=== PATIENT | male | born 1960 | race African-American/Black ===

== ENCOUNTER 2019-06-01 00:07 | Emergency (ER) | payer MEDICARE, MEDICAID ==
[~2019-06-01] VITALS: Ht 170.2 cm; Wt 54.4 kg
[2019-06-01] MEDS ORDERED: HYDROcodone-ACET 10/325MG TAB PO ONE (04:45)
[2019-06-01] MEDS ORDERED: SODIUM CHLORIDE 0.9% 1,000 ML IV ONE (07:57)
[2019-06-01] MEDS ORDERED: PROMETHAZINE HCL 25 MG/ML 1ML IV PRN (08:00)
[2019-06-01] MEDS ORDERED: MORPHINE SULFATE 4 MG/ML SYR/VIAL IV PRN (08:00)
[2019-06-01 08:58] LABS: Eosinophils # (auto) 0.9 uL; Hematocrit 39.7 % (41.0-53.0); Hemoglobin 13.1 g/dL (13.5-17.5); Lymphocytes # (auto) 1.6 uL; Mean Corpuscular Hgb Conc. 32.9 g/dL (32.0-36.0)
[2019-06-01 09:02] LABS: Basophils # (auto) 0.2 uL; Basophils % (auto) 2.1 % (0.0-2.0); Eosinophils % (auto) 11.7 % (0.0-7.0); Mean Corpuscular Hemoglobin 35.5 pg (28.0-32.0); Mean Corpuscular Volume 107.9 fL (80.0-100.0); Monocytes # (auto) 1.2 uL; Monocytes % (auto) 16.4 % (0.0-12.0); Neutrophils # (auto) 3.5 uL; Neutrophils % (auto) 47.8 % (37.0-80.0); Nucleated Red Blood Cells % 0.3 %; Platelet Count (auto) 282 10^3/uL (140-450); Red Blood Cells 3.68 10^6/uL (4.5-5.90); Red Cell Distribution Width 16.7 % (11.8-14.3); White Blood Cell 7.4 10^3/uL (4.4-10.8)
[2019-06-01 09:17] LABS: Albumin 3.7 g/dL (3.4-5.0); Calcium 9.7 mg/dL (8.5-10.1); Magnesium 2.5 mg/dL (1.6-2.6); Potassium 3.7 mmol/L (3.5-5.1)
[2019-06-01 09:21] LABS: BUN/Creatinine Ratio 3.3; Bilirubin, Total 0.6 mg/dL (0.2-1.0); Total Protein 8.1 g/dL (6.4-8.2)
[2019-06-01 10:00] VITALS: BP 138/75
== END 2019-06-01 10:40 | disposition home or self-care (01) ==
LOC: EDBD 00:07 → ER 00:16
DX: M47.816 Spondylosis without myelopathy or radiculopathy, lumbar region (principal); M79.662 Pain in left lower leg; M79.661 Pain in right lower leg; E11.22 Type 2 diabetes mellitus with diabetic chronic kidney disease; I12.0 Hypertensive chronic kidney disease with stage 5 chronic kidney disease or end stage renal disease; N18.6 End stage renal disease; D75.89 Other specified diseases of blood and blood-forming organs; E11.40 Type 2 diabetes mellitus with diabetic neuropathy, unspecified; F17.210 Nicotine dependence, cigarettes, uncomplicated
CPT/HCPCS: 36415; 72131; 80053; 83690; 83735; 85025; 96374; 96375; 99284; J2270; J2550; J7030

== ENCOUNTER 2020-05-05 22:40 | Emergency (ER) | payer MEDICARE, MEDICAID ==
[~2020-05-05] VITALS: Ht 177.8 cm; Wt 59.0 kg
[2020-05-05 23:41] LABS: Basophils # (auto) 0.1 10 ^3/uL (0-0.2); Eosinophils # (auto) 0.3 10 ^3/uL (0-0.8); Hemoglobin 12.6 g/dL (13.5-17.5); Lymphocytes # (auto) 0.7 10 ^3/uL (0.4-5.4); Monocytes # (auto) 0.9 10 ^3/uL (0-1.3)
[2020-05-05 23:42] LABS: Basophils % (auto) 0.6 % (0.0-2.0); Eosinophils % (auto) 2.3 % (0.0-7.0); Hematocrit 37.7 % (41.0-53.0); Lymphocytes % (auto) 5.8 % (10.0-50.0); Mean Corpuscular Hemoglobin 34.8 pg (28.0-32.0); Mean Corpuscular Hgb Conc. 33.5 g/dL (32.0-36.0); Mean Corpuscular Volume 103.9 fL (80.0-100.0); Monocytes % (auto) 7.7 % (0.0-12.0); Neutrophils # (auto) 10.2 10 ^3/uL (1.6-8.6); Neutrophils % (auto) 83.6 % (37.0-80.0); Platelet Count (auto) 291 10^3/uL (140-450); Red Blood Cells 3.63 10^6/uL (4.5-5.90); Red Cell Distribution Width 13.4 % (11.8-14.3); White Blood Cell 12.2 10^3/uL (4.4-10.8)
[2020-05-05 23:58] LABS: Calcium 9.7 mg/dL (8.5-10.1); INR 1.13 (0.9-1.15); Magnesium 2.8 mg/dL (1.6-2.6); Partial Thromboplastin Time 29.9 sec (23.0-31.2); Potassium 4.2 mmol/L (3.5-5.1)
[2020-05-06 00:06] LABS: BUN/Creatinine Ratio 4.5; Bilirubin, Total 0.4 mg/dL (0.2-1.0); Total Protein 8.6 g/dL (6.4-8.2)
[2020-05-06] MEDS ORDERED: FLEET ENEMA(ADULT) 135 ML PR ONE ×3 (00:15→02:15)
[2020-05-06] MEDS ORDERED: SODIUM CHLORIDE 0.9% 500 ML IV ONE (01:15)
[2020-05-06] MEDS ORDERED: DICYCLOMINE HCL (10MG/ML) 2 ML AMPULE IM ONE (01:15)
[2020-05-06] MEDS ORDERED: ACETAMINOPHEN 325 MG TAB PO ONE (05:15)
[2020-05-06 05:26] VITALS: BP 112/55
== END 2020-05-06 06:05 | disposition home or self-care (01) ==
LOC: EDBD 22:40 → ER 22:44
DX: K59.00 Constipation, unspecified (principal); R10.13 Epigastric pain; R11.2 Nausea with vomiting, unspecified; E11.22 Type 2 diabetes mellitus with diabetic chronic kidney disease; N18.6 End stage renal disease; F17.210 Nicotine dependence, cigarettes, uncomplicated; G89.4 Chronic pain syndrome; Z99.2 Dependence on renal dialysis; Z89.511 Acquired absence of right leg below knee
CPT/HCPCS: 36415; 71045; 74176; 80053; 82150; 83605; 83690; 83735; 84484; 85025; 85610; 85730; 93005; 96372; 99285; J0500; J7030; 96360

== ENCOUNTER 2020-06-11 23:44 | Emergency (ER) | payer MEDICARE, MEDICAID ==
[~2020-06-11] VITALS: Ht 177.8 cm; Wt 54.4 kg
[2020-06-12 01:48] LABS: Albumin 3.3 g/dL (3.4-5.0); Calcium 8.8 mg/dL (8.5-10.1); Magnesium 2.6 mg/dL (1.6-2.6); Potassium 5.1 mmol/L (3.5-5.1)
[2020-06-12 01:51] LABS: BUN/Creatinine Ratio 3.7
[2020-06-12 01:56] LABS: Bilirubin, Total 0.4 mg/dL (0.2-1.0); Total Protein 7.3 g/dL (6.4-8.2)
[2020-06-12 01:58] LABS: Basophils # (auto) 0 10 ^3/uL (0-0.2); Basophils % (auto) 0.7 % (0.0-2.0); Eosinophils # (auto) 0.8 10 ^3/uL (0-0.8); Eosinophils % (auto) 13.1 % (0.0-7.0); Hematocrit 32.2 % (41.0-53.0); Hemoglobin 10.4 g/dL (13.5-17.5); Lymphocytes # (auto) 1.2 10 ^3/uL (0.4-5.4); Lymphocytes % (auto) 19.6 % (10.0-50.0); Mean Corpuscular Hemoglobin 33.9 pg (28.0-32.0); Mean Corpuscular Hgb Conc. 32.4 g/dL (32.0-36.0); Mean Corpuscular Volume 104.7 fL (80.0-100.0); Monocytes # (auto) 0.9 10 ^3/uL (0-1.3); Monocytes % (auto) 15.9 % (0.0-12.0); Neutrophils % (auto) 50.7 % (37.0-80.0); Nucleated Red Blood Cells % 0.2 %; Platelet Count (auto) 167 10^3/uL (140-450); Red Blood Cells 3.07 10^6/uL (4.5-5.90); Red Cell Distribution Width 14.3 % (11.8-14.3)
[2020-06-12] MEDS ORDERED: fentaNYL CITRATE 100 MCG/2 ML VL IV ONE (03:15)
[2020-06-12] MEDS ORDERED: ALUM & MAG HYDROX-SIMETH LIQ(MAALOX) 30 ML PO ONE (03:15)
[2020-06-12] MEDS ORDERED: ONDANSETRON HCL 4 MG/2 ML VIAL IV ONE (03:15)
[2020-06-12] MEDS ORDERED: hydrALAZINE HCL 20 MG/ML VL IV ONE (03:15)
[2020-06-12] MEDS ORDERED: PANTOPRAZOLE 40 MG/10 ML VIAL INJ IV ONE (03:15)
[2020-06-12] MEDS ORDERED: ASPirin 325 MG TAB PO ONE (03:30)
[2020-06-12 04:01] VITALS: BP 132/62
== END 2020-06-12 04:45 | disposition left against medical advice (07) ==
LOC: ER 23:44
DX: R07.89 Other chest pain (principal); F17.210 Nicotine dependence, cigarettes, uncomplicated; F12.10 Cannabis abuse, uncomplicated; E11.22 Type 2 diabetes mellitus with diabetic chronic kidney disease; N18.6 End stage renal disease
CPT/HCPCS: 36415; 71045; 80053; 83735; 84484; 85025; 93005; 96374; 99285; J0360; J3010; C9113; J2405

== ENCOUNTER 2020-10-31 00:18 | Emergency (ER) | payer MEDICARE, MEDICAID ==
[~2020-10-31] VITALS: Ht 180.3 cm; Wt 54.4 kg
[2020-10-31] MEDS ORDERED: GABAPENTIN 300 MG CAP PO ONE (08:00)
[2020-10-31] MEDS ORDERED: HYDROcodone-ACET 10/325MG TAB PO ONE (08:00)
[2020-10-31 08:06] VITALS: BP 150/78
== END 2020-10-31 11:27 | disposition home or self-care (01) ==
LOC: ER 00:18
DX: T82.590A Other mechanical complication of surgically created arteriovenous fistula, initial encounter (principal); E11.22 Type 2 diabetes mellitus with diabetic chronic kidney disease; N18.6 End stage renal disease; F17.210 Nicotine dependence, cigarettes, uncomplicated

== ENCOUNTER 2020-11-10 08:03 | Inpatient (IN) | payer MEDICARE, MEDICAID ==
[~2020-11-10] VITALS: Ht 177.8 cm; Wt 54.3 kg
[2020-11-10 09:31] LABS: Hematocrit 32.4 % (41.0-53.0); Hemoglobin 10.8 g/dL (13.5-17.5); Mean Corpuscular Hemoglobin 33.9 pg (28.0-32.0); Mean Corpuscular Hgb Conc. 33.5 g/dL (32.0-36.0); Mean Corpuscular Volume 101.3 fL (80.0-100.0); Red Cell Distribution Width 14.5 % (11.8-14.3); White Blood Cell 4.1 10^3/uL (4.4-10.8)
[2020-11-10 09:33] LABS: Calcium 8.2 mg/dL (8.5-10.1); Potassium 4.9 mmol/L (3.5-5.1)
[2020-11-10 09:34] LABS: Band Neutrophils % (manual) 0; Blast Cells 0; Metamyelocytes % 0; Myelocytes % 0; Promyelocytes % 0; Reactive Lymphocytes 0
[2020-11-10 09:38] LABS: BUN/Creatinine Ratio 3.2; Bilirubin, Total 0.5 mg/dL (0.2-1.0); Total Protein 7.6 g/dL (6.4-8.2)
[2020-11-10 09:54] LABS: Basophils % (manual) 2 (0.0-2.0); Eosinophils % (manual) 33 (0-7); Lymphocytes % (manual) 28 (10.0-50.0); Monocytes % (manual) 9 (0-12)
[2020-11-10] MEDS ORDERED: ENOXAPARIN SOD 60 MG/0.6 ML SYRINGE SC ONE (13:00)
[2020-11-10] MEDS ORDERED: MORPHINE SULFATE 4 MG/ML SYR/VIAL IV ONE (13:45)
[2020-11-10] MEDS ORDERED: ONDANSETRON HCL 4 MG/2 ML VIAL IV ONE (13:45)
[2020-11-10] MEDS ORDERED: ONDANSETRON HCL 4 MG/2 ML VIAL IV PRN (15:15)
[2020-11-10] MEDS ORDERED: TEMAZEPAM 15 MG CAP PO PRN (15:15)
[2020-11-10] MEDS ORDERED: ACETAMINOPHEN 325 MG TAB PO PRN (15:15)
[2020-11-10] MEDS ORDERED: NITROGLYCERIN 0.4 MG SL TAB SL PRN (15:15)
[2020-11-10] MEDS: diphenhdrAMINE HCL 50 MG/1 ML VL IV PRN (20:23)
[2020-11-10 22:00] VITALS: BP 146/78
[2020-11-10] MEDS ORDERED: CINA30TA3 PO (23:20)
[2020-11-10] MEDS ORDERED: [UNRECOGNIZED DRUG - CODE] PO (23:21)
[2020-11-10] MEDS ORDERED: B-CO-5 PO (23:22)
[2020-11-10] MEDS ORDERED: HYDR-4795 PO (23:23)
[2020-11-11] MEDS: HYDROcodone-ACET 5/325MG TAB PO PRN ×2 (03:54→18:49)
[2020-11-11 05:00] VITALS: BP 167/87
[2020-11-11 05:33] VITALS: BP 134/71
[2020-11-11 06:06] LABS: Hematocrit 31.5 % (41.0-53.0); Hemoglobin 10.4 g/dL (13.5-17.5); Mean Corpuscular Hemoglobin 34.4 pg (28.0-32.0); Mean Corpuscular Volume 104.1 fL (80.0-100.0); Red Blood Cells 3.03 10^6/uL (4.5-5.90); Red Cell Distribution Width 14.3 % (11.8-14.3)
[2020-11-11 06:21] LABS: Band Neutrophils % (manual) 0; Basophils % (manual) 0 (0.0-2.0); Blast Cells 0; Metamyelocytes % 0; Myelocytes % 0; Promyelocytes % 0; Reactive Lymphocytes 0
[2020-11-11 06:39] LABS: Albumin 2.7 g/dL (3.4-5.0); BUN/Creatinine Ratio 3.5; Bilirubin, Total 0.5 mg/dL (0.2-1.0); Calcium 7.7 mg/dL (8.5-10.1); Total Protein 6.9 g/dL (6.4-8.2)
[2020-11-11] MEDS ORDERED: DEXTROSE (50%) 50ML SYRG IV ONE (07:00)
[2020-11-11] MEDS ORDERED: SODIUM CHL 0.9% 1000 ML BAG XX ONE (07:00)
[2020-11-11] MEDS ORDERED: DEXTROSE 50% SYRINGE 50 ML IV ONE (07:03)
[2020-11-11] MEDS ORDERED: ASPirin 325 MG TAB PO ONE (08:00)
[2020-11-11 08:19] LABS: Eosinophils % (manual) 25 (0-7); Lymphocytes % (manual) 33 (10.0-50.0); Monocytes % (manual) 20 (0-12)
[2020-11-11 09:00] VITALS: BP 148/93
[2020-11-11] MEDS ORDERED: ADENOSINE 46 MG in GIVE UN-DILUTED 0 ML IV ONE (09:00)
[2020-11-11] MEDS ORDERED: ENOXAPARIN SOD 40 MG/0.4 ML SYRINGE SC SCH (10:00)
[2020-11-11] MEDS: diphenhdrAMINE HCL 50 MG/1 ML VL IV PRN ×2 (10:23→20:25)
[2020-11-11] MEDS: HEPARIN SODIUM (PORCINE) 5000 UNITS/ML 1ML VIAL SC SCH ×2 (10:26→22:18)
[2020-11-11 12:58] VITALS: BP 158/76
[2020-11-11] MEDS: cloNIDine HCL 0.1 MG TAB PO PRN ×2 (16:49→21:58)
[2020-11-11 17:00] VITALS: BP 159/71
[2020-11-11] MEDS: MORPHINE SULF INJ 2 MG/ML SYRINGE 1ML IV PRN (21:59)
[2020-11-11 22:00] VITALS: BP 159/74
[2020-11-12] MEDS: MORPHINE SULF INJ 2 MG/ML SYRINGE 1ML IV PRN (02:29)
[2020-11-12 02:30] VITALS: BP 141/75
[2020-11-12 05:00] VITALS: BP 153/63
[2020-11-12] MEDS: HYDROcodone-ACET 5/325MG TAB PO PRN (05:00)
[2020-11-12 09:00] VITALS: BP 155/72
[2020-11-12] MEDS: diphenhdrAMINE HCL 50 MG/1 ML VL IV PRN ×2 (10:04→20:35)
[2020-11-12] MEDS: ASPirin 81 mg TAB PO SCH (10:04)
[2020-11-12] MEDS: LOSARTAN POTASSIUM 50 MG TAB PO SCH (10:04)
[2020-11-12] MEDS: MORPHINE SULFATE 4 MG/ML SYR/VIAL IV PRN ×2 (10:05→20:35)
[2020-11-12] MEDS: HEPARIN SODIUM (PORCINE) 5000 UNITS/ML 1ML VIAL SC SCH ×2 (10:07→21:01)
[2020-11-12 13:00] VITALS: BP 146/96
[2020-11-12 14:40] LABS: BUN/Creatinine Ratio 2.5; Calcium 7.9 mg/dL (8.5-10.1); Potassium 4.6 mmol/L (3.5-5.1)
[2020-11-12 17:00] VITALS: BP 171/84
[2020-11-12] MEDS: cloNIDine HCL 0.1 MG TAB PO PRN (17:20)
[2020-11-12 22:00] VITALS: BP 151/73
[2020-11-13 05:00] VITALS: BP 138/84
[2020-11-13] MEDS ORDERED: SODIUM CHL 0.9% 1000 ML BAG XX ONE (07:00)
[2020-11-13 09:00] VITALS: BP 154/70
[2020-11-13] MEDS: ASPirin 81 mg TAB PO SCH (09:56)
[2020-11-13] MEDS: LOSARTAN POTASSIUM 50 MG TAB PO SCH (10:00)
[2020-11-13] MEDS: HEPARIN SODIUM (PORCINE) 5000 UNITS/ML 1ML VIAL SC SCH (10:00)
[2020-11-13 13:00] VITALS: BP 181/93
[2020-11-13] MEDS: cloNIDine HCL 0.1 MG TAB PO PRN (13:50)
[2020-11-13] MEDS: MORPHINE SULFATE 4 MG/ML SYR/VIAL IV PRN ×2 (13:50→19:19)
[2020-11-13 17:00] VITALS: BP 172/76
[2020-11-13] MEDS: diphenhdrAMINE HCL 50 MG/1 ML VL IV PRN (19:19)
== END 2020-11-13 21:15 | disposition home or self-care (01) | DRG 291 ==
LOC: EDBD 08:03 → ER 08:03 → TELE 15:09 → TELE-WESTW 20:40
PROVIDERS: ADMIT Nurse Practitioner; ATTEND Nurse Practitioner
PROC: 5A1D70Z Performance of Urinary Filtration, Intermittent, Less than 6 Hours Per Day (ICD-10-PCS; principal; 2020-11-11)
PROC: 5A1D70Z Performance of Urinary Filtration, Intermittent, Less than 6 Hours Per Day (ICD-10-PCS; 2020-11-13)
DX: I11.0 Hypertensive heart disease with heart failure (principal); N18.6 End stage renal disease; E87.1 Hypo-osmolality and hyponatremia; E44.1 Mild protein-calorie malnutrition; Z68.1 Body mass index [BMI] 19.9 or less, adult; I50.23 Acute on chronic systolic (congestive) heart failure; D63.1 Anemia in chronic kidney disease; I20.9 Angina pectoris, unspecified; F17.210 Nicotine dependence, cigarettes, uncomplicated; F12.90 Cannabis use, unspecified, uncomplicated; Z20.822 Contact with and (suspected) exposure to COVID-19; E11.22 Type 2 diabetes mellitus with diabetic chronic kidney disease; R07.89 Other chest pain; Z83.3 Family history of diabetes mellitus; Z99.2 Dependence on renal dialysis; Z89.511 Acquired absence of right leg below knee; Z99.3 Dependence on wheelchair
CPT/HCPCS: 36415; 71045; 78452; 80048; 80053; 82962; 83880; 84484; 85007; 85027; 87081; 87426; 90935; 93005; 93017; 93306; 96372; 96374; 96375; G0378; J0153; J1642; J2405

== ENCOUNTER 2021-01-04 23:29 | Inpatient (IN) | payer MEDICARE, MEDICAID ==
[~2021-01-04] VITALS: Ht 165.1 cm; Wt 61.4 kg
[~2021-01-04 23:29] MED LIST: B-CO-5 PO; CINA30TA14 PO; HYDR-4795 PO; [UNRECOGNIZED DRUG - CODE] PO
[2021-01-05 00:33] LABS: Basophils # (auto) 0.2 10 ^3/uL (0-0.2); Basophils % (auto) 2.6 % (0.0-2.0); Eosinophils # (auto) 0.6 10 ^3/uL (0-0.8); Eosinophils % (auto) 7.2 % (0.0-7.0); Hematocrit 31.5 % (41.0-53.0); Hemoglobin 10.3 g/dL (13.5-17.5); Lymphocytes # (auto) 2.2 10 ^3/uL (0.4-5.4); Lymphocytes % (auto) 26.1 % (10.0-50.0); Mean Corpuscular Hgb Conc. 32.6 g/dL (32.0-36.0); Mean Corpuscular Volume 101.3 fL (80.0-100.0); Monocytes # (auto) 1.3 10 ^3/uL (0-1.3); Monocytes % (auto) 15.9 % (0.0-12.0); Neutrophils % (auto) 48.2 % (37.0-80.0); Nucleated Red Blood Cells % 0.1 %; Red Blood Cells 3.11 10^6/uL (4.5-5.90); Red Cell Distribution Width 16.1 % (11.8-14.3); White Blood Cell 8.3 10^3/uL (4.4-10.8)
[2021-01-05 00:51] LABS: BUN/Creatinine Ratio 4.2; Calcium 8.3 mg/dL (8.5-10.1); Magnesium 2.8 mg/dL (1.6-2.6)
[2021-01-05 00:56] LABS: Bilirubin, Total 0.5 mg/dL (0.2-1.0); Total Protein 7.2 g/dL (6.4-8.2)
[2021-01-05] MEDS ORDERED: ASPirin 325 MG TAB PO ONE (01:45)
[2021-01-05] MEDS ORDERED: cefTRIAXone 1GM/50ML D5W 50 ML IV ONE (01:45)
[2021-01-05] MEDS ORDERED: AZITHROMYCIN 500MG/ 250ML 250 ML IV ONE (01:45)
[2021-01-05 02:14] LABS: INR 1.25 (0.9-1.15)
[2021-01-05] MEDS ORDERED: NITROGLYCERIN 0.4 MG SL TAB SL PRN (06:00)
[2021-01-05] MEDS: MORPHINE SULFATE INJECTION 2 MG/ML SYRG IV PRN ×4 (06:28→19:52)
[2021-01-05] MEDS: ONDANSETRON HCL 4 MG/2 ML VIAL IV PRN ×4 (06:28→19:52)
[2021-01-05] MEDS: PANTOPRAZOLE 40 MG/10 ML VIAL INJ IV SCH (09:30)
[2021-01-05] MEDS ORDERED: IOHEXOL 350 MG/ML 100ML IJ ONE (11:29)
[2021-01-05] MEDS: SUCRALFATE 1 GM/10 ML ORAL SUSP PO SCH (16:06)
[2021-01-05 16:10] LABS: Albumin 2.6 g/dL (3.4-5.0); Calcium 8.2 mg/dL (8.5-10.1)
[2021-01-05 16:14] LABS: BUN/Creatinine Ratio 4.8; Bilirubin, Total 0.6 mg/dL (0.2-1.0); Total Protein 6.4 g/dL (6.4-8.2)
[2021-01-05] MEDS: HALOPERIDOL LACTATE 5 MG/ML INJ VIAL IM PRN (16:17)
[2021-01-05 20:36] LABS: Folate (Folic Acid) 13.82 ng/mL (5.38-24)
[2021-01-06] VITALS (29 sets, daily range): BP systolic 86–115; BP diastolic 52–66
[2021-01-06] MEDS: HALOPERIDOL LACTATE 5 MG/ML INJ VIAL IM PRN (00:25)
[2021-01-06] MEDS: MORPHINE SULFATE INJECTION 2 MG/ML SYRG IV PRN (01:55)
[2021-01-06] MEDS: ONDANSETRON HCL 4 MG/2 ML VIAL IV PRN (01:56)
[2021-01-06] MEDS ORDERED: cefTRIAXone 1GM/50ML D5W 50 ML IV SCH (02:00)
[2021-01-06] MEDS ORDERED: HEPARIN SODIUM (PORCINE) 5000 UNITS/ML 1ML VIAL IV ONE (02:15)
[2021-01-06] MEDS ORDERED: ASPirin 325 MG TAB PO ONE (02:15)
[2021-01-06 02:58] LABS: INR 1.48 (0.9-1.15); Partial Thromboplastin Time 31.9 sec (23.6-33.0)
[2021-01-06] MEDS ORDERED: AZITHROMYCIN 500MG/ 250ML 250 ML IV SCH (03:00)
[2021-01-06] MEDS: HEPARIN DRIP/D5W 100UNITS/ML 250 ML IV SCH (03:54)
[2021-01-06 05:44] LABS: Basophils # (auto) 0.1 10 ^3/uL (0-0.2); Eosinophils # (auto) 0 10 ^3/uL (0-0.8); Lymphocytes # (auto) 1.5 10 ^3/uL (0.4-5.4); Lymphocytes % (auto) 10.5 % (10.0-50.0); Neutrophils # (auto) 11.6 10 ^3/uL (1.6-8.6)
[2021-01-06 05:46] LABS: Basophils % (auto) 0.9 % (0.0-2.0); Hematocrit 27.6 % (41.0-53.0); Mean Corpuscular Hemoglobin 33.5 pg (28.0-32.0); Mean Corpuscular Hgb Conc. 32.6 g/dL (32.0-36.0); Mean Corpuscular Volume 102.5 fL (80.0-100.0); Monocytes # (auto) 1.2 10 ^3/uL (0-1.3); Monocytes % (auto) 8.5 % (0.0-12.0); Neutrophils % (auto) 80.1 % (37.0-80.0); Red Blood Cells 2.69 10^6/uL (4.5-5.90); Red Cell Distribution Width 16.3 % (11.8-14.3); White Blood Cell 14.5 10^3/uL (4.4-10.8)
[2021-01-06] MEDS: SUCRALFATE 1 GM/10 ML ORAL SUSP PO SCH ×2 (07:00→17:00)
[2021-01-06] MEDS ORDERED: ASPirin 300 MG RECTAL SUPP PR ONE (07:30)
[2021-01-06] MEDS: ASPirin 81 mg TAB PO SCH (08:25)
[2021-01-06] MEDS ORDERED: LORazepam 2MG/ML-1ML VIAL IV PRN (08:45)
[2021-01-06 11:34] LABS: INR 1.63 (0.9-1.15); Partial Thromboplastin Time 60.4 sec (23.6-33.0)
[2021-01-06] MEDS ORDERED: VANCOMYCIN PER PHARMACY 0 MG IV SCH (12:15)
[2021-01-06] MEDS: PANTOPRAZOLE 40 MG/10 ML VIAL INJ IV SCH (12:29)
[2021-01-06] MEDS ORDERED: ROCURONIUM 10MG/ML 10ML VIAL IV ONE (13:47)
[2021-01-06] MEDS ORDERED: PROPOFOL 100 ML IV ONE (13:47)
[2021-01-06] MEDS ORDERED: ETOMIDATE (2MG/ML) 20ML VIAL IV ONE (13:47)
[2021-01-06] MEDS ORDERED: fentaNYL Drip 2500mCg/250mlNS 250 ML IV ONE (13:51)
[2021-01-06] MEDS ORDERED: VANCOMYCIN 1GM/250ML 250 ML IV ONE (14:00)
[2021-01-06] MEDS ORDERED: PIPERACILLIN-TAZOB 2.25GM 50 ML IV SCH (14:00)
[2021-01-06] MEDS ORDERED: NOREPINEPHRINE 8 MG/250ML KIT 250 ML IV ONE (14:08)
[2021-01-06] MEDS: fentaNYL Drip 2500mCg/250mlNS 250 ML IV SCH (14:15)
[2021-01-06] MEDS: PROPOFOL 100 ML IV SCH (14:15)
[2021-01-06] MEDS ORDERED: SODIUM CHL 0.9% 1000 ML BAG XX ONE (15:15)
[2021-01-06] MEDS: NOREPINEPHRINE 8 MG/250ML KIT 250 ML IV SCH (15:20)
[2021-01-06 16:24] LABS: Hematocrit 27.4 % (41.0-53.0); Hemoglobin 8.9 g/dL (13.5-17.5)
[2021-01-06 16:35] LABS: Chloride 107 mmol/L (98-107); Potassium 5.5 mmol/L (3.5-5.1); Sodium 141 mmol/L (136-145)
[2021-01-06 16:36] LABS: Alanine Aminotransferase 19 U/L (16-61); Albumin 2.4 g/dL (3.4-5.0); Alkaline Phosphatase 82 U/L (45-117); Anion Gap 15 (5-15); Aspartate Aminotransferase 30 U/L (15-37); BUN/Creatinine Ratio 5.2; Bilirubin, Total 0.8 mg/dL (0.2-1.0); Blood Urea Nitrogen 64 mg/dL (7-18); Calcium 8.7 mg/dL (8.5-10.1); Carbon Dioxide 19 mmol/L (21-32); GFR African American 5 mL/min; GFR Non-African American 4 mL/min; Glucose 106 mg/dL (74-106); Total Protein 6.4 g/dL (6.4-8.2)
[2021-01-06] MEDS: PIPERACILLIN-TAZOB 2.25GM 50 ML IV SCH ×2 (17:07→23:17)
[2021-01-06 18:03] LABS: INR 1.56 (0.9-1.15)
[2021-01-06] MEDS ORDERED: EPOETIN ALFA-EPBX 4,000 UNIT/ML VIAL SC ONE (21:00)
[2021-01-07] VITALS (88 sets, daily range): BP systolic 67–165; BP diastolic 43–85
[2021-01-07] MEDS: HEPARIN DRIP/D5W 100UNITS/ML 250 ML IV SCH (02:41)
[2021-01-07 04:42] LABS: Basophils # (auto) 0.2 10 ^3/uL (0-0.2); Basophils % (auto) 1.2 % (0.0-2.0); Eosinophils # (auto) 0.1 10 ^3/uL (0-0.8); Eosinophils % (auto) 0.5 % (0.0-7.0); Hematocrit 27.1 % (41.0-53.0); Hemoglobin 8.9 g/dL (13.5-17.5); Lymphocytes # (auto) 2.6 10 ^3/uL (0.4-5.4); Lymphocytes % (auto) 19.4 % (10.0-50.0); Mean Corpuscular Hgb Conc. 33.1 g/dL (32.0-36.0); Mean Corpuscular Volume 99.9 fL (80.0-100.0); Monocytes # (auto) 1.4 10 ^3/uL (0-1.3); Monocytes % (auto) 10.8 % (0.0-12.0); Neutrophils % (auto) 68.1 % (37.0-80.0); Nucleated Red Blood Cells % 0.1 %; Red Blood Cells 2.71 10^6/uL (4.5-5.90); Red Cell Distribution Width 16.6 % (11.8-14.3); White Blood Cell 13.2 10^3/uL (4.4-10.8)
[2021-01-07 04:59] LABS: INR 1.44 (0.9-1.15)
[2021-01-07 05:03] LABS: Partial Thromboplastin Time 81.1 sec (23.6-33.0)
[2021-01-07 05:07] LABS: Albumin 2.5 g/dL (3.4-5.0); BUN/Creatinine Ratio 5.4; Bilirubin, Total 0.7 mg/dL (0.2-1.0); Calcium 8.9 mg/dL (8.5-10.1); Total Protein 6.6 g/dL (6.4-8.2)
[2021-01-07 05:26] LABS: Potassium 5.7 mmol/L (3.5-5.1)
[2021-01-07] MEDS: PIPERACILLIN-TAZOB 2.25GM 50 ML IV SCH ×3 (05:33→23:14)
[2021-01-07] MEDS: SUCRALFATE 1 GM/10 ML ORAL SUSP PO SCH ×2 (05:34→16:32)
[2021-01-07 09:02] LABS: INR 1.34 (0.9-1.15)
[2021-01-07 09:19] LABS: Partial Thromboplastin Time 124.6 sec (23.6-33.0)
[2021-01-07] MEDS: ASPirin 81 mg TAB PO SCH (09:46)
[2021-01-07] MEDS: PANTOPRAZOLE 40 MG/10 ML VIAL INJ IV SCH (09:46)
[2021-01-07] MEDS: PROPOFOL 100 ML IV SCH ×2 (10:55→14:49)
[2021-01-07] MEDS: fentaNYL Drip 2500mCg/250mlNS 250 ML IV SCH (10:56)
[2021-01-07] MEDS: NOREPINEPHRINE 8 MG/250ML KIT 250 ML IV SCH (14:50)
[2021-01-07 15:59] LABS: INR 1.2 (0.9-1.15)
[2021-01-07] MEDS ORDERED: VANCOMYCIN 500 MG in D5W 5% 100 ML IV ONE (16:00)
[2021-01-07 17:17] LABS: Hepatitis A Ab IgM Negative; Hepatitis B Core IgM Negative; Hepatitis B Surface Antigen Negative (Negative); Hepatitis C Antibody Negative (Negative)
[2021-01-07 23:03] LABS: INR 1.18 (0.9-1.15)
[2021-01-08] VITALS (92 sets, daily range): BP systolic 81–191; BP diastolic 50–95
[2021-01-08] MEDS: HEPARIN DRIP/D5W 100UNITS/ML 250 ML IV SCH (02:15)
[2021-01-08 04:36] LABS: Hematocrit 24.8 % (41.0-53.0)
[2021-01-08 04:37] LABS: Basophils # (auto) 0.2 10 ^3/uL (0-0.2); Basophils % (auto) 2.4 % (0.0-2.0); Eosinophils # (auto) 0.7 10 ^3/uL (0-0.8); Eosinophils % (auto) 8.7 % (0.0-7.0); Hemoglobin 8.3 g/dL (13.5-17.5); Lymphocytes # (auto) 2.2 10 ^3/uL (0.4-5.4); Lymphocytes % (auto) 25.9 % (10.0-50.0); Mean Corpuscular Hemoglobin 33.6 pg (28.0-32.0); Mean Corpuscular Hgb Conc. 33.5 g/dL (32.0-36.0); Mean Corpuscular Volume 100.2 fL (80.0-100.0); Monocytes # (auto) 1.2 10 ^3/uL (0-1.3); Monocytes % (auto) 13.6 % (0.0-12.0); Neutrophils # (auto) 4.3 10 ^3/uL (1.6-8.6); Neutrophils % (auto) 49.4 % (37.0-80.0); Nucleated Red Blood Cells % 0.2 %; Red Blood Cells 2.47 10^6/uL (4.5-5.90); Red Cell Distribution Width 16.5 % (11.8-14.3); White Blood Cell 8.7 10^3/uL (4.4-10.8)
[2021-01-08 04:44] LABS: Potassium 4.2 mmol/L (3.5-5.1)
[2021-01-08 04:53] LABS: BUN/Creatinine Ratio 4.6; Bilirubin, Total 0.8 mg/dL (0.2-1.0); Calcium 8.5 mg/dL (8.5-10.1); Magnesium 2.5 mg/dL (1.6-2.6); Phosphorus 5.1 mg/dL (2.5-4.90); Pre Albumin 12.6 mg/dL (20.0-40.0); Total Protein 6.1 g/dL (6.4-8.2)
[2021-01-08 05:28] LABS: INR 1.18 (0.9-1.15); Partial Thromboplastin Time 57.5 sec (23.6-33.0)
[2021-01-08] MEDS: SUCRALFATE 1 GM/10 ML ORAL SUSP PO SCH ×2 (05:50→17:17)
[2021-01-08] MEDS: PIPERACILLIN-TAZOB 2.25GM 50 ML IV SCH ×3 (05:50→21:59)
[2021-01-08] MEDS: fentaNYL Drip 2500mCg/250mlNS 250 ML IV SCH (14:15)
[2021-01-08] MEDS: NOREPINEPHRINE 8 MG/250ML KIT 250 ML IV SCH (14:15)
[2021-01-08 14:24] LABS: INR 1.14 (0.9-1.15); Partial Thromboplastin Time 69.8 sec (23.6-33.0)
[2021-01-08] MEDS ORDERED: SODIUM CHL 0.9% 1000 ML BAG XX ONE (15:15)
[2021-01-08] MEDS: ASPirin 81 mg TAB PO SCH (17:17)
[2021-01-08] MEDS: PANTOPRAZOLE 40 MG/10 ML VIAL INJ IV SCH (17:17)
[2021-01-08] MEDS ORDERED: EPOETIN ALFA-EPBX 4,000 UNIT/ML VIAL SC ONE (21:00)
[2021-01-08 21:36] LABS: INR 1.1 (0.9-1.15)
[2021-01-08 21:47] LABS: Partial Thromboplastin Time 72.9 sec (23.6-33.0)
[2021-01-09] VITALS (98 sets, daily range): BP systolic 63–160; BP diastolic 34–97
[2021-01-09] MEDS: HEPARIN DRIP/D5W 100UNITS/ML 250 ML IV SCH ×2 (02:15→13:28)
[2021-01-09 04:20] LABS: Hematocrit 25.3 % (41.0-53.0); Hemoglobin 8.5 g/dL (13.5-17.5); Mean Corpuscular Hemoglobin 33.3 pg (28.0-32.0); Mean Corpuscular Hgb Conc. 33.4 g/dL (32.0-36.0); Mean Corpuscular Volume 99.7 fL (80.0-100.0); Red Blood Cells 2.54 10^6/uL (4.5-5.90); Red Cell Distribution Width 15.9 % (11.8-14.3); White Blood Cell 7.3 10^3/uL (4.4-10.8)
[2021-01-09 04:25] LABS: Basophils % (manual) 0 (0.0-2.0); Blast Cells 0; Metamyelocytes % 0; Myelocytes % 0; Promyelocytes % 0; Reactive Lymphocytes 0
[2021-01-09 04:34] LABS: INR 1.11 (0.9-1.15)
[2021-01-09 04:40] LABS: Potassium 4.6 mmol/L (3.5-5.1)
[2021-01-09 04:49] LABS: BUN/Creatinine Ratio 4.3; Calcium 9.2 mg/dL (8.5-10.1)
[2021-01-09 04:51] LABS: Bilirubin, Total 0.8 mg/dL (0.2-1.0); Total Protein 6.4 g/dL (6.4-8.2)
[2021-01-09 05:39] LABS: Band Neutrophils % (manual) 4; Eosinophils % (manual) 7 (0-7); Lymphocytes % (manual) 18 (10.0-50.0); Monocytes % (manual) 8 (0-12)
[2021-01-09] MEDS: NOREPINEPHRINE 8 MG/250ML KIT 250 ML IV SCH ×2 (05:55→22:45)
[2021-01-09] MEDS: PROPOFOL 100 ML IV SCH ×2 (06:15→16:55)
[2021-01-09] MEDS: PIPERACILLIN-TAZOB 2.25GM 50 ML IV SCH ×3 (07:00→23:00)
[2021-01-09] MEDS: SUCRALFATE 1 GM/10 ML ORAL SUSP PO SCH ×2 (07:00→17:00)
[2021-01-09 11:08] LABS: INR 1.08 (0.9-1.15); Partial Thromboplastin Time 32.2 sec (23.6-33.0)
[2021-01-09] MEDS: PANTOPRAZOLE 40 MG/10 ML VIAL INJ IV SCH (12:11)
[2021-01-09] MEDS: ASPirin 81 mg TAB PO SCH (12:12)
[2021-01-09] MEDS: fentaNYL Drip 2500mCg/250mlNS 250 ML IV SCH (16:55)
[2021-01-09 21:47] LABS: INR 1.17 (0.9-1.15)
[2021-01-09 21:59] LABS: Partial Thromboplastin Time 80.6 sec (23.6-33.0)
[2021-01-10] VITALS (102 sets, daily range): BP systolic 75–169; BP diastolic 43–83
[2021-01-10] MEDS: PROPOFOL 100 ML IV SCH (02:00)
[2021-01-10] MEDS: SUCRALFATE 1 GM/10 ML ORAL SUSP PO SCH ×2 (07:00→18:20)
[2021-01-10] MEDS: PIPERACILLIN-TAZOB 2.25GM 50 ML IV SCH ×3 (07:00→22:17)
[2021-01-10] MEDS: ASPirin 81 mg TAB PO SCH (08:24)
[2021-01-10 09:20] LABS: Eosinophils # (auto) 0.5 10 ^3/uL (0-0.8); Hematocrit 22.8 % (41.0-53.0); Hemoglobin 7.3 g/dL (13.5-17.5); Monocytes # (auto) 0.9 10 ^3/uL (0-1.3); Nucleated Red Blood Cells % 0.1 %; White Blood Cell 7.2 10^3/uL (4.4-10.8)
[2021-01-10 09:26] LABS: Basophils # (auto) 0.3 10 ^3/uL (0-0.2); Basophils % (auto) 3.9 % (0.0-2.0); Eosinophils % (auto) 7.2 % (0.0-7.0); Lymphocytes # (auto) 2.8 10 ^3/uL (0.4-5.4); Lymphocytes % (auto) 38.5 % (10.0-50.0); Mean Corpuscular Hemoglobin 32.2 pg (28.0-32.0); Mean Corpuscular Volume 100.5 fL (80.0-100.0); Neutrophils # (auto) 2.7 10 ^3/uL (1.6-8.6); Neutrophils % (auto) 37.4 % (37.0-80.0); Red Blood Cells 2.27 10^6/uL (4.5-5.90); Red Cell Distribution Width 15.8 % (11.8-14.3)
[2021-01-10 10:10] LABS: INR 1.18 (0.9-1.15); Partial Thromboplastin Time 66.7 sec (23.6-33.0)
[2021-01-10] MEDS: PANTOPRAZOLE 40 MG/10 ML VIAL INJ IV SCH (11:46)
[2021-01-10] MEDS ORDERED: VANCOMYCIN 500 MG in D5W 5% 100 ML IV ONE (15:00)
[2021-01-10] MEDS: fentaNYL Drip 2500mCg/250mlNS 250 ML IV SCH ×2 (15:38→22:54)
[2021-01-10] MEDS: HEPARIN DRIP/D5W 100UNITS/ML 250 ML IV SCH (15:40)
[2021-01-11] VITALS (80 sets, daily range): BP systolic 66–218; BP diastolic 27–95
[2021-01-11] MEDS: PROPOFOL 100 ML IV SCH ×2 (00:53→14:09)
[2021-01-11 01:12] LABS: INR 1.22 (0.9-1.15); Partial Thromboplastin Time 56.7 sec (23.6-33.0)
[2021-01-11 04:24] LABS: Hemoglobin 7.5 g/dL (13.5-17.5)
[2021-01-11 04:26] LABS: Mean Corpuscular Hemoglobin 32.3 pg (28.0-32.0); Mean Corpuscular Hgb Conc. 32.6 g/dL (32.0-36.0); Mean Corpuscular Volume 99.1 fL (80.0-100.0); Red Blood Cells 2.32 10^6/uL (4.5-5.90); Red Cell Distribution Width 15.7 % (11.8-14.3); White Blood Cell 8.2 10^3/uL (4.4-10.8)
[2021-01-11 04:32] LABS: Basophils % (manual) 0 (0.0-2.0); Blast Cells 0; Metamyelocytes % 0; Myelocytes % 0; Promyelocytes % 0; Reactive Lymphocytes 0
[2021-01-11 04:43] LABS: Chloride 100 mmol/L (98-107); Potassium 3.5 mmol/L (3.5-5.1); Sodium 143 mmol/L (136-145)
[2021-01-11 04:50] LABS: Alanine Aminotransferase 12 U/L (16-61); Albumin 1.9 g/dL (3.4-5.0); Anion Gap 17 (5-15); Aspartate Aminotransferase 14 U/L (15-37); BUN/Creatinine Ratio 3.7; Blood Urea Nitrogen 28 mg/dL (7-18); Calcium 9.1 mg/dL (8.5-10.1); Carbon Dioxide 26 mmol/L (21-32); GFR African American 10 mL/min; GFR Non-African American 8 mL/min; Glucose 79 mg/dL (74-106)
[2021-01-11 05:00] LABS: Band Neutrophils % (manual) 5; Eosinophils % (manual) 9 (0-7); Lymphocytes % (manual) 47 (10.0-50.0); Monocytes % (manual) 11 (0-12)
[2021-01-11 05:54] LABS: Alkaline Phosphatase 63 U/L (45-117); Bilirubin, Total 0.6 mg/dL (0.2-1.0); INR 1.23 (0.9-1.15); Partial Thromboplastin Time 67.5 sec (23.6-33.0); Total Protein 6.1 g/dL (6.4-8.2)
[2021-01-11 06:17] LABS: Magnesium 2.2 mg/dL (1.6-2.6)
[2021-01-11] MEDS ORDERED: SODIUM CHL 0.9% 1000 ML BAG XX ONE (07:00)
[2021-01-11] MEDS: PIPERACILLIN-TAZOB 2.25GM 50 ML IV SCH ×2 (07:00→18:49)
[2021-01-11] MEDS: SUCRALFATE 1 GM/10 ML ORAL SUSP PO SCH ×2 (07:00→17:14)
[2021-01-11] MEDS: ASPirin 81 mg TAB PO SCH (10:51)
[2021-01-11] MEDS: PANTOPRAZOLE 40 MG/10 ML VIAL INJ IV SCH (10:52)
[2021-01-11] MEDS ORDERED: IOHEXOL 350 MG/ML 100ML IJ ONE ×2 (11:27→12:20)
[2021-01-11 11:31] LABS: INR 1.23 (0.9-1.15)
[2021-01-11 11:41] LABS: Partial Thromboplastin Time 94.2 sec (23.6-33.0)
[2021-01-11] MEDS ORDERED: TPN PER PHARMACY 0 ML IV SCH (13:30)
[2021-01-11] MEDS: NOREPINEPHRINE 8 MG/250ML KIT 250 ML IV SCH ×2 (15:26→17:15)
[2021-01-11] MEDS ORDERED: VANCOMYCIN 500 MG in D5W 5% 100 ML IV ONE ×2 (16:00→17:30)
[2021-01-11] MEDS ORDERED: DEXTROSE (50%) 50ML SYRG IV SCH (18:00)
[2021-01-11] MEDS: InsuLIN REG 1unit/0.01ml Soln (100units/ml) SC SCH (18:00)
[2021-01-11] MEDS: ACCU-CHEK COMFORT CURVE STRIP VI SCH (18:04)
[2021-01-11 19:35] LABS: INR 1.2 (0.9-1.15); Partial Thromboplastin Time 54.2 sec (23.6-33.0)
[2021-01-11] MEDS ORDERED: AMINO ACID INFUSION IN D10W 1,000 ML IV NR (20:00)
[2021-01-11] MEDS ORDERED: EPOETIN ALFA-EPBX 4,000 UNIT/ML VIAL SC ONE (21:00)
[2021-01-12] VITALS (37 sets, daily range): BP systolic 86–164; BP diastolic 23–140
[2021-01-12 01:15] LABS: INR 1.21 (0.9-1.15); Partial Thromboplastin Time 45.2 sec (23.6-33.0)
[2021-01-12] MEDS: PIPERACILLIN-TAZOB 2.25GM 50 ML IV SCH ×3 (02:30→18:30)
[2021-01-12] MEDS: ACCU-CHEK COMFORT CURVE STRIP VI SCH ×4 (06:00→18:00)
[2021-01-12] MEDS: InsuLIN REG 1unit/0.01ml Soln (100units/ml) SC SCH ×4 (06:00→18:00)
[2021-01-12] MEDS: SUCRALFATE 1 GM/10 ML ORAL SUSP PO SCH ×2 (07:00→17:00)
[2021-01-12 07:39] LABS: Calcium 9.2 mg/dL (8.5-10.1); Magnesium 2.1 mg/dL (1.6-2.6); Potassium 3.9 mmol/L (3.5-5.1)
[2021-01-12 07:41] LABS: INR 1.21 (0.9-1.15); Partial Thromboplastin Time 48.1 sec (23.6-33.0)
[2021-01-12 07:42] LABS: BUN/Creatinine Ratio 3.4
[2021-01-12 07:46] LABS: Bilirubin, Total 0.6 mg/dL (0.2-1.0); Phosphorus 4.6 mg/dL (2.5-4.90); Total Protein 6.2 g/dL (6.4-8.2)
[2021-01-12] MEDS: PANTOPRAZOLE 40 MG/10 ML VIAL INJ IV SCH (09:27)
[2021-01-12] MEDS: ASPirin 81 mg TAB PO SCH (09:28)
[2021-01-12 09:56] LABS: Cholesterol 154 mg/dL (< 200); HDL Cholesterol 58 mg/dL (40-59); LDL Cholesterol 84 mg/dL (< 100); Triglycerides 113 mg/dL (< 150)
[2021-01-12] MEDS: VANCOMYCIN HCL 125MG/5ML ORAL SOL PO SCH ×3 (12:00→22:00)
[2021-01-12] MEDS: PROPOFOL 100 ML IV SCH (14:15)
[2021-01-12] MEDS: fentaNYL Drip 2500mCg/250mlNS 250 ML IV SCH (14:15)
[2021-01-12 14:45] LABS: INR 1.21 (0.9-1.15); Partial Thromboplastin Time 43.7 sec (23.6-33.0)
[2021-01-12] MEDS: NOREPINEPHRINE 8 MG/250ML KIT 250 ML IV SCH (17:15)
[2021-01-12] MEDS ORDERED: MAGNESIUM SULF IV NR ×6 (20:00)
[2021-01-12] MEDS ORDERED: [UNRECOGNIZED DRUG - OTHER] IV NR ×6 (20:00)
[2021-01-12] MEDS ORDERED: POTASSIUM CHLORIDE IV NR ×6 (20:00)
[2021-01-12] MEDS ORDERED: SODIUM CHLORIDE IV NR ×6 (20:00)
[2021-01-12] MEDS: ATORVASTATIN 20 MG TAB PO SCH (22:00)
[2021-01-13] VITALS (12 sets, daily range): BP systolic 102–128; BP diastolic 29–103
[2021-01-13 00:30] LABS: INR 1.21 (0.9-1.15); Partial Thromboplastin Time 43.4 sec (23.6-33.0)
[2021-01-13] MEDS: ACCU-CHEK COMFORT CURVE STRIP VI SCH ×5 (01:06→23:44)
[2021-01-13] MEDS: InsuLIN REG 1unit/0.01ml Soln (100units/ml) SC SCH ×5 (01:07→23:43)
[2021-01-13] MEDS: MORPHINE SULFATE INJECTION 2 MG/ML SYRG IV PRN ×2 (01:11→11:50)
[2021-01-13] MEDS: PIPERACILLIN-TAZOB 2.25GM 50 ML IV SCH ×3 (03:26→18:51)
[2021-01-13 05:24] LABS: INR 1.21 (0.9-1.15); Partial Thromboplastin Time 63.2 sec (23.6-33.0)
[2021-01-13 05:35] LABS: Calcium 9.5 mg/dL (8.5-10.1)
[2021-01-13 05:37] LABS: Basophils # (auto) 0.1 10 ^3/uL (0-0.2); Basophils % (auto) 0.9 % (0.0-2.0); Eosinophils # (auto) 0.1 10 ^3/uL (0-0.8); Eosinophils % (auto) 0.6 % (0.0-7.0); Hemoglobin 9.1 g/dL (13.5-17.5); Lymphocytes # (auto) 1.8 10 ^3/uL (0.4-5.4); Lymphocytes % (auto) 11.3 % (10.0-50.0); Mean Corpuscular Hemoglobin 31.9 pg (28.0-32.0); Mean Corpuscular Hgb Conc. 31.5 g/dL (32.0-36.0); Mean Corpuscular Volume 101.3 fL (80.0-100.0); Neutrophils # (auto) 13.2 10 ^3/uL (1.6-8.6); Neutrophils % (auto) 81.2 % (37.0-80.0); Nucleated Red Blood Cells % 0.7 %; Red Blood Cells 2.86 10^6/uL (4.5-5.90); Red Cell Distribution Width 17.8 % (11.8-14.3); White Blood Cell 16.3 10^3/uL (4.4-10.8)
[2021-01-13 05:42] LABS: Albumin 2.3 g/dL (3.4-5.0); BUN/Creatinine Ratio 4.3; Bilirubin, Total 0.6 mg/dL (0.2-1.0); Magnesium 2.3 mg/dL (1.6-2.6); Phosphorus 4.8 mg/dL (2.5-4.90); Total Protein 6.7 g/dL (6.4-8.2)
[2021-01-13] MEDS: VANCOMYCIN HCL 125MG/5ML ORAL SOL PO SCH ×5 (06:00→21:14)
[2021-01-13] MEDS ORDERED: SODIUM CHL 0.9% 1000 ML BAG XX ONE (07:00)
[2021-01-13] MEDS: SUCRALFATE 1 GM/10 ML ORAL SUSP PO SCH ×2 (07:00→18:51)
[2021-01-13] MEDS ORDERED: ENOXAPARIN SOD 40 MG/0.4 ML SYRINGE SC ONE (10:45)
[2021-01-13] MEDS ORDERED: ENOXAPARIN SOD 40 MG/0.4 ML SYRINGE SC SCH (11:15)
[2021-01-13] MEDS: PANTOPRAZOLE 40 MG/10 ML VIAL INJ IV SCH (11:49)
[2021-01-13] MEDS: ASPirin 81 mg TAB PO SCH (11:50)
[2021-01-13] MEDS ORDERED: LORazepam 2MG/ML-1ML VIAL IV ONE (13:30)
[2021-01-13] MEDS ORDERED: VANCOMYCIN 500 MG in D5W 5% 100 ML IV ONE (16:00)
[2021-01-13] MEDS ORDERED: TPN PER PHARMACY 0 ML IV SCH (20:15)
[2021-01-13] MEDS ORDERED: AMINO ACID INFUSION IN D10W 1,000 ML IV NR (20:30)
[2021-01-13] MEDS: ATORVASTATIN 20 MG TAB PO SCH ×2 (20:56→21:14)
[2021-01-13] MEDS ORDERED: EPOETIN ALFA-EPBX 10,000 UNIT/1ML VIAL SC ONE (21:00)
[2021-01-14] MEDS: PIPERACILLIN-TAZOB 2.25GM 50 ML IV SCH ×3 (02:20→19:06)
[2021-01-14 04:48] VITALS: BP 131/78
[2021-01-14] MEDS: VANCOMYCIN HCL 125MG/5ML ORAL SOL PO SCH ×4 (05:27→23:33)
[2021-01-14] MEDS: InsuLIN REG 1unit/0.01ml Soln (100units/ml) SC SCH ×4 (05:27→23:36)
[2021-01-14] MEDS: ACCU-CHEK COMFORT CURVE STRIP VI SCH ×4 (05:28→23:34)
[2021-01-14] MEDS: SUCRALFATE 1 GM/10 ML ORAL SUSP PO SCH ×2 (05:28→17:33)
[2021-01-14 05:59] LABS: Basophils # (auto) 0.1 10 ^3/uL (0-0.2); Basophils % (auto) 0.6 % (0.0-2.0); Eosinophils # (auto) 0.1 10 ^3/uL (0-0.8); Eosinophils % (auto) 1.4 % (0.0-7.0); Hematocrit 25.9 % (41.0-53.0); Hemoglobin 8.6 g/dL (13.5-17.5); Lymphocytes # (auto) 1.9 10 ^3/uL (0.4-5.4); Lymphocytes % (auto) 18.7 % (10.0-50.0); Mean Corpuscular Hemoglobin 32.6 pg (28.0-32.0); Mean Corpuscular Hgb Conc. 33.1 g/dL (32.0-36.0); Mean Corpuscular Volume 98.5 fL (80.0-100.0); Monocytes # (auto) 1.1 10 ^3/uL (0-1.3); Monocytes % (auto) 10.2 % (0.0-12.0); Neutrophils # (auto) 7.2 10 ^3/uL (1.6-8.6); Neutrophils % (auto) 69.1 % (37.0-80.0); Nucleated Red Blood Cells % 1.2 %; Red Blood Cells 2.63 10^6/uL (4.5-5.90); Red Cell Distribution Width 17.3 % (11.8-14.3); White Blood Cell 10.4 10^3/uL (4.4-10.8)
[2021-01-14 06:29] LABS: Albumin 2.3 g/dL (3.4-5.0); Calcium 9.5 mg/dL (8.5-10.1); Magnesium 2.4 mg/dL (1.6-2.6); Potassium 3.5 mmol/L (3.5-5.1)
[2021-01-14 06:33] LABS: BUN/Creatinine Ratio 5.3; Bilirubin, Total 0.7 mg/dL (0.2-1.0); Phosphorus 3.8 mg/dL (2.5-4.90); Total Protein 6.6 g/dL (6.4-8.2)
[2021-01-14] MEDS ORDERED: POTASSIUM CHL 20MEQ/100ML 100 ML IV ONE (08:45)
[2021-01-14 09:00] VITALS: BP 136/85
[2021-01-14] MEDS: ASPirin 81 mg TAB PO SCH (09:21)
[2021-01-14] MEDS: ENOXAPARIN SOD 40 MG/0.4 ML SYRINGE SC SCH (09:21)
[2021-01-14] MEDS: PANTOPRAZOLE 40 MG/10 ML VIAL INJ IV SCH (09:22)
[2021-01-14] MEDS: MORPHINE SULFATE INJECTION 2 MG/ML SYRG IV PRN ×2 (10:25→21:37)
[2021-01-14 13:00] VITALS: BP 124/70
[2021-01-14 17:00] VITALS: BP 134/81
[2021-01-14] MEDS ORDERED: TPN PER PHARMACY IV NR ×7 (20:00)
[2021-01-14] MEDS: ALPRAZolam 0.5 MG TAB PO PRN (21:37)
[2021-01-14 22:00] VITALS: BP 124/68
[2021-01-14] MEDS: ATORVASTATIN 20 MG TAB PO SCH (23:34)
[2021-01-15] MEDS: PIPERACILLIN-TAZOB 2.25GM 50 ML IV SCH ×3 (02:33→18:19)
[2021-01-15 05:00] VITALS: BP 130/81
[2021-01-15] MEDS: SUCRALFATE 1 GM/10 ML ORAL SUSP PO SCH ×2 (06:40→18:18)
[2021-01-15] MEDS: MORPHINE SULFATE INJECTION 2 MG/ML SYRG IV PRN ×2 (06:40→22:15)
[2021-01-15] MEDS: ACCU-CHEK COMFORT CURVE STRIP VI SCH ×4 (06:41→23:07)
[2021-01-15] MEDS: InsuLIN REG 1unit/0.01ml Soln (100units/ml) SC SCH ×4 (06:42→23:23)
[2021-01-15] MEDS: VANCOMYCIN HCL 125MG/5ML ORAL SOL PO SCH ×4 (06:43→22:14)
[2021-01-15] MEDS ORDERED: SODIUM CHL 0.9% 1000 ML BAG XX ONE (07:00)
[2021-01-15 07:39] LABS: Potassium 3.7 mmol/L (3.5-5.1)
[2021-01-15 07:44] LABS: Albumin 2.1 g/dL (3.4-5.0); BUN/Creatinine Ratio 5.7; Calcium 9.4 mg/dL (8.5-10.1); Magnesium 2.4 mg/dL (1.6-2.6)
[2021-01-15 07:54] LABS: Bilirubin, Total 0.5 mg/dL (0.2-1.0); Phosphorus 4.4 mg/dL (2.5-4.90); Total Protein 6.3 g/dL (6.4-8.2)
[2021-01-15 08:00] VITALS: BP 138/67
[2021-01-15] MEDS: PANTOPRAZOLE 40 MG/10 ML VIAL INJ IV SCH (09:26)
[2021-01-15] MEDS: ASPirin 81 mg TAB PO SCH (09:27)
[2021-01-15] MEDS: ENOXAPARIN SOD 40 MG/0.4 ML SYRINGE SC SCH (09:27)
[2021-01-15 12:24] VITALS: BP 120/93
[2021-01-15 17:00] VITALS: BP 129/67
[2021-01-15] MEDS ORDERED: EPOETIN ALFA-EPBX 4,000 UNIT/ML VIAL SC ONE (21:00)
[2021-01-15 22:00] VITALS: BP 139/70
[2021-01-15] MEDS: TPN PER PHARMACY IV NR ×7 (22:13)
[2021-01-15] MEDS: ATORVASTATIN 20 MG TAB PO SCH (22:14)
[2021-01-15] MEDS: ALPRAZolam 0.5 MG TAB PO PRN (23:06)
[2021-01-16] MEDS: PIPERACILLIN-TAZOB 2.25GM 50 ML IV SCH ×4 (04:30→18:31)
[2021-01-16 05:00] VITALS: BP 126/68
[2021-01-16 06:02] LABS: Potassium 3.4 mmol/L (3.5-5.1)
[2021-01-16 06:14] LABS: Bilirubin, Total 0.5 mg/dL (0.2-1.0); Calcium 8.9 mg/dL (8.5-10.1); Magnesium 2.4 mg/dL (1.6-2.6); Phosphorus 2.8 mg/dL (2.5-4.90); Total Protein 5.9 g/dL (6.4-8.2)
[2021-01-16] MEDS: ACCU-CHEK COMFORT CURVE STRIP VI SCH ×4 (06:59→23:13)
[2021-01-16] MEDS: VANCOMYCIN HCL 125MG/5ML ORAL SOL PO SCH ×4 (06:59→21:02)
[2021-01-16] MEDS: MORPHINE SULFATE INJECTION 2 MG/ML SYRG IV PRN ×3 (07:00→23:31)
[2021-01-16] MEDS: SUCRALFATE 1 GM/10 ML ORAL SUSP PO SCH ×2 (07:00→17:37)
[2021-01-16] MEDS: InsuLIN REG 1unit/0.01ml Soln (100units/ml) SC SCH ×4 (07:01→23:16)
[2021-01-16 09:00] VITALS: BP 120/53
[2021-01-16] MEDS: ASPirin 81 mg TAB PO SCH (10:05)
[2021-01-16] MEDS: PANTOPRAZOLE 40 MG/10 ML VIAL INJ IV SCH (10:05)
[2021-01-16] MEDS: ENOXAPARIN SOD 40 MG/0.4 ML SYRINGE SC SCH (10:06)
[2021-01-16] MEDS: ALPRAZolam 0.5 MG TAB PO PRN (12:39)
[2021-01-16 13:00] VITALS: BP 117/57
[2021-01-16 17:00] VITALS: BP 112/53
[2021-01-16] MEDS: TPN PER PHARMACY IV NR ×7 (19:41)
[2021-01-16] MEDS ORDERED: TPN PER PHARMACY IV NR ×5 (20:00)
[2021-01-16] MEDS: ATORVASTATIN 20 MG TAB PO SCH (21:02)
[2021-01-16 22:00] VITALS: BP 136/69
[2021-01-16] MEDS: ONDANSETRON HCL 4 MG/2 ML VIAL IV PRN (23:31)
[2021-01-17] MEDS: PIPERACILLIN-TAZOB 2.25GM 50 ML IV SCH ×3 (02:34→17:38)
[2021-01-17] MEDS: ONDANSETRON HCL 4 MG/2 ML VIAL IV PRN (02:58)
[2021-01-17] MEDS: MORPHINE SULFATE INJECTION 2 MG/ML SYRG IV PRN ×3 (03:02→12:56)
[2021-01-17 05:00] VITALS: BP 121/70
[2021-01-17] MEDS: ACCU-CHEK COMFORT CURVE STRIP VI SCH ×4 (06:24→23:46)
[2021-01-17] MEDS: InsuLIN REG 1unit/0.01ml Soln (100units/ml) SC SCH ×4 (06:31→23:53)
[2021-01-17] MEDS: VANCOMYCIN HCL 125MG/5ML ORAL SOL PO SCH ×4 (06:33→21:33)
[2021-01-17] MEDS: SUCRALFATE 1 GM/10 ML ORAL SUSP PO SCH ×2 (06:33→17:37)
[2021-01-17 07:02] LABS: Albumin 1.9 g/dL (3.4-5.0); Magnesium 2.4 mg/dL (1.6-2.6)
[2021-01-17 07:07] LABS: Bilirubin, Total 0.5 mg/dL (0.2-1.0); Phosphorus 3.1 mg/dL (2.5-4.90); Total Protein 5.9 g/dL (6.4-8.2)
[2021-01-17 07:17] LABS: Hematocrit 27.4 % (41.0-53.0); Hemoglobin 8.9 g/dL (13.5-17.5); Mean Corpuscular Hemoglobin 32.7 pg (28.0-32.0); Mean Corpuscular Hgb Conc. 32.4 g/dL (32.0-36.0); Red Blood Cells 2.71 10^6/uL (4.5-5.90); Red Cell Distribution Width 19.6 % (11.8-14.3); White Blood Cell 10.5 10^3/uL (4.4-10.8)
[2021-01-17 07:33] LABS: Basophils % (manual) 0 (0.0-2.0); Blast Cells 0; Metamyelocytes % 0; Myelocytes % 0; Promyelocytes % 0
[2021-01-17] MEDS: PANTOPRAZOLE 40 MG/10 ML VIAL INJ IV SCH (08:24)
[2021-01-17] MEDS: HEPARIN SODIUM (PORCINE) 5000 UNITS/ML 1ML VIAL SC SCH ×2 (08:25→21:35)
[2021-01-17] MEDS: ASPirin 81 mg TAB PO SCH (08:25)
[2021-01-17 09:00] VITALS: BP 117/53
[2021-01-17 12:26] LABS: Band Neutrophils % (manual) 3; Eosinophils % (manual) 6 (0-7); Lymphocytes % (manual) 24 (10.0-50.0); Monocytes % (manual) 15 (0-12); Reactive Lymphocytes 1
[2021-01-17] MEDS: ALPRAZolam 0.5 MG TAB PO PRN (12:56)
[2021-01-17 13:00] VITALS: BP 133/69
[2021-01-17 17:00] VITALS: BP 108/55
[2021-01-17] MEDS ORDERED: TPN PER PHARMACY IV NR ×7 (20:00)
[2021-01-17] MEDS: ATORVASTATIN 20 MG TAB PO SCH (21:33)
[2021-01-17 22:22] VITALS: BP 134/68
[2021-01-18] MEDS: MORPHINE SULFATE INJECTION 2 MG/ML SYRG IV PRN ×4 (01:33→19:28)
[2021-01-18] MEDS: ONDANSETRON HCL 4 MG/2 ML VIAL IV PRN (01:33)
[2021-01-18] MEDS: PIPERACILLIN-TAZOB 2.25GM 50 ML IV SCH ×3 (01:34→19:22)
[2021-01-18 05:13] VITALS: BP 119/54
[2021-01-18] MEDS: ACCU-CHEK COMFORT CURVE STRIP VI SCH ×3 (06:13→18:12)
[2021-01-18] MEDS: InsuLIN REG 1unit/0.01ml Soln (100units/ml) SC SCH ×3 (06:14→18:26)
[2021-01-18] MEDS: VANCOMYCIN HCL 125MG/5ML ORAL SOL PO SCH ×4 (06:16→20:42)
[2021-01-18] MEDS: SUCRALFATE 1 GM/10 ML ORAL SUSP PO SCH ×2 (06:22→18:12)
[2021-01-18 06:55] LABS: Potassium 3.8 mmol/L (3.5-5.1)
[2021-01-18] MEDS ORDERED: SODIUM CHL 0.9% 1000 ML BAG XX ONE (07:00)
[2021-01-18 07:03] LABS: Albumin 1.9 g/dL (3.4-5.0); Bilirubin, Total 0.4 mg/dL (0.2-1.0); Calcium 9.1 mg/dL (8.5-10.1); Magnesium 2.4 mg/dL (1.6-2.6); Phosphorus 3.8 mg/dL (2.5-4.90)
[2021-01-18] MEDS: PANTOPRAZOLE 40 MG/10 ML VIAL INJ IV SCH (08:36)
[2021-01-18] MEDS: ASPirin 81 mg TAB PO SCH (08:37)
[2021-01-18] MEDS: HEPARIN SODIUM (PORCINE) 5000 UNITS/ML 1ML VIAL SC SCH ×2 (08:38→21:17)
[2021-01-18 09:00] VITALS: BP 121/63
[2021-01-18 10:34] LABS: Mean Corpuscular Volume 102.2 fL (80.0-100.0)
[2021-01-18 10:35] LABS: Hematocrit 30.3 % (41.0-53.0); Hemoglobin 9.5 g/dL (13.5-17.5); Mean Corpuscular Hgb Conc. 31.3 g/dL (32.0-36.0); Red Blood Cells 2.96 10^6/uL (4.5-5.90); Red Cell Distribution Width 19.2 % (11.8-14.3); White Blood Cell 7.8 10^3/uL (4.4-10.8)
[2021-01-18 10:39] LABS: Basophils % (manual) 0 (0.0-2.0); Blast Cells 0; Metamyelocytes % 0; Myelocytes % 0; Promyelocytes % 0; Reactive Lymphocytes 0
[2021-01-18 12:46] LABS: Band Neutrophils % (manual) 3; Eosinophils % (manual) 6 (0-7); Lymphocytes % (manual) 23 (10.0-50.0); Monocytes % (manual) 17 (0-12)
[2021-01-18 13:00] VITALS: BP 111/59
[2021-01-18] MEDS ORDERED: ALBUMIN 25% 100 ML IV ONE (13:00)
[2021-01-18 17:04] VITALS: BP 139/72
[2021-01-18] MEDS: [UNRECOGNIZED DRUG - OTHER] IV NR ×9 (20:40)
[2021-01-18] MEDS: SODIUM CHLORIDE IV NR ×9 (20:40)
[2021-01-18] MEDS: SODIUM PHOSPHATES IV NR ×9 (20:40)
[2021-01-18] MEDS: FAT EMULSION IV NR ×9 (20:40)
[2021-01-18] MEDS: ATORVASTATIN 20 MG TAB PO SCH (20:42)
[2021-01-18] MEDS: ALPRAZolam 0.5 MG TAB PO PRN (20:42)
[2021-01-18] MEDS ORDERED: EPOETIN ALFA-EPBX 10,000 UNIT/1ML VIAL SC ONE (21:00)
[2021-01-18 22:00] VITALS: BP 113/58
[2021-01-19] MEDS: MORPHINE SULFATE INJECTION 2 MG/ML SYRG IV PRN ×4 (00:31→20:16)
[2021-01-19] MEDS: ACCU-CHEK COMFORT CURVE STRIP VI SCH ×4 (00:31→18:01)
[2021-01-19] MEDS: PIPERACILLIN-TAZOB 2.25GM 50 ML IV SCH ×3 (02:55→18:01)
[2021-01-19 05:00] VITALS: BP 127/55
[2021-01-19] MEDS: SUCRALFATE 1 GM/10 ML ORAL SUSP PO SCH ×2 (05:15→18:00)
[2021-01-19] MEDS: VANCOMYCIN HCL 125MG/5ML ORAL SOL PO SCH ×4 (05:15→20:16)
[2021-01-19] MEDS: InsuLIN REG 1unit/0.01ml Soln (100units/ml) SC SCH ×4 (06:06→18:00)
[2021-01-19 06:13] LABS: Potassium 3.7 mmol/L (3.5-5.1)
[2021-01-19 06:31] LABS: Albumin 2.2 g/dL (3.4-5.0); BUN/Creatinine Ratio 8.1; Bilirubin, Total 0.5 mg/dL (0.2-1.0); Calcium 8.7 mg/dL (8.5-10.1); Magnesium 2.2 mg/dL (1.6-2.6); Phosphorus 2.7 mg/dL (2.5-4.90)
[2021-01-19] MEDS: ASPirin 81 mg TAB PO SCH (09:27)
[2021-01-19] MEDS: PANTOPRAZOLE 40 MG/10 ML VIAL INJ IV SCH (09:27)
[2021-01-19] MEDS: HEPARIN SODIUM (PORCINE) 5000 UNITS/ML 1ML VIAL SC SCH ×2 (09:30→20:17)
[2021-01-19 13:00] VITALS: BP 127/70
[2021-01-19 17:00] VITALS: BP 117/117
[2021-01-19] MEDS ORDERED: hydrOXYzine HCL 10 MG TAB PO PRN (19:00)
[2021-01-19] MEDS ORDERED: TPN PER PHARMACY IV NR ×8 (20:00)
[2021-01-19] MEDS: ALPRAZolam 0.5 MG TAB PO PRN (20:15)
[2021-01-19] MEDS: [UNRECOGNIZED DRUG - OTHER] IV NR ×9 (20:15)
[2021-01-19] MEDS: SODIUM PHOSPHATES IV NR ×9 (20:15)
[2021-01-19] MEDS: SODIUM CHLORIDE IV NR ×9 (20:15)
[2021-01-19] MEDS: FAT EMULSION IV NR ×9 (20:15)
[2021-01-19] MEDS: ATORVASTATIN 20 MG TAB PO SCH (20:16)
[2021-01-19 22:00] VITALS: BP 123/59
[2021-01-20] MEDS: ACCU-CHEK COMFORT CURVE STRIP VI SCH ×4 (00:19→22:16)
[2021-01-20] MEDS: InsuLIN REG 1unit/0.01ml Soln (100units/ml) SC SCH ×4 (00:21→22:00)
[2021-01-20] MEDS: PIPERACILLIN-TAZOB 2.25GM 50 ML IV SCH ×2 (02:30→09:30)
[2021-01-20] MEDS: MORPHINE SULFATE INJECTION 2 MG/ML SYRG IV PRN ×3 (03:43→19:49)
[2021-01-20 05:00] VITALS: BP 155/107
[2021-01-20] MEDS: VANCOMYCIN HCL 125MG/5ML ORAL SOL PO SCH ×4 (05:34→22:15)
[2021-01-20] MEDS: SUCRALFATE 1 GM/10 ML ORAL SUSP PO SCH ×2 (05:35→17:27)
[2021-01-20 05:50] LABS: Hemoglobin 9.6 g/dL (13.5-17.5); Mean Corpuscular Volume 102.5 fL (80.0-100.0)
[2021-01-20 05:54] LABS: Hematocrit 28.9 % (41.0-53.0); Mean Corpuscular Hemoglobin 34.1 pg (28.0-32.0); Mean Corpuscular Hgb Conc. 33.2 g/dL (32.0-36.0); Red Blood Cells 2.82 10^6/uL (4.5-5.90); White Blood Cell 7.7 10^3/uL (4.4-10.8)
[2021-01-20 06:19] VITALS: BP 146/88
[2021-01-20 06:22] LABS: Red Cell Distribution Width 21.1 % (11.8-14.3)
[2021-01-20 06:24] LABS: Basophils % (manual) 0 (0.0-2.0); Blast Cells 0; Metamyelocytes % 0; Myelocytes % 0; Promyelocytes % 0; Reactive Lymphocytes 0
[2021-01-20 06:31] LABS: Albumin 2.1 g/dL (3.4-5.0); Calcium 8.9 mg/dL (8.5-10.1); Magnesium 2.2 mg/dL (1.6-2.6)
[2021-01-20 06:34] LABS: BUN/Creatinine Ratio 9.7; Bilirubin, Total 0.5 mg/dL (0.2-1.0); Phosphorus 3.1 mg/dL (2.5-4.90)
[2021-01-20] MEDS ORDERED: SODIUM CHL 0.9% 1000 ML BAG XX ONE (07:00)
[2021-01-20 08:12] LABS: Band Neutrophils % (manual) 3; Lymphocytes % (manual) 25 (10.0-50.0); Monocytes % (manual) 20 (0-12)
[2021-01-20 08:13] LABS: Eosinophils % (manual) 11 (0-7)
[2021-01-20 09:00] VITALS: BP 133/61
[2021-01-20] MEDS: ASPirin 81 mg TAB PO SCH (09:26)
[2021-01-20] MEDS: PANTOPRAZOLE 40 MG/10 ML VIAL INJ IV SCH (09:27)
[2021-01-20] MEDS: HEPARIN SODIUM (PORCINE) 5000 UNITS/ML 1ML VIAL SC SCH ×2 (09:28→22:15)
[2021-01-20] MEDS: Nepro With Carbsteady Vanilla 8oz Carton PO SCH ×2 (12:38→18:00)
[2021-01-20 13:00] VITALS: BP 131/71
[2021-01-20 17:00] VITALS: BP 156/60
[2021-01-20] MEDS ORDERED: DEXTROSE (50%) 50ML SYRG IV PRN (18:45)
[2021-01-20] MEDS ORDERED: TPN PER PHARMACY IV NR ×9 (20:00)
[2021-01-20] MEDS ORDERED: EPOETIN ALFA-EPBX 4,000 UNIT/ML VIAL SC ONE (21:00)
[2021-01-20 22:00] VITALS: BP 131/80
[2021-01-20] MEDS: LANTHANUM CARBONATE 750 MG PO SCH (22:00)
[2021-01-20] MEDS: ATORVASTATIN 20 MG TAB PO SCH (22:14)
[2021-01-20] MEDS: MEGESTROL ACET 400MG/10ML ORAL SUSP PO SCH (22:16)
[2021-01-21] MEDS: ALPRAZolam 0.5 MG TAB PO PRN ×3 (04:11→21:34)
[2021-01-21 05:00] VITALS: BP 166/100
[2021-01-21] MEDS: SUCRALFATE 1 GM/10 ML ORAL SUSP PO SCH ×2 (06:00→16:57)
[2021-01-21] MEDS: ACCU-CHEK COMFORT CURVE STRIP VI SCH ×4 (06:00→21:29)
[2021-01-21] MEDS: LANTHANUM CARBONATE 750 MG PO SCH ×3 (06:00→21:28)
[2021-01-21] MEDS: VANCOMYCIN HCL 125MG/5ML ORAL SOL PO SCH ×4 (06:01→21:35)
[2021-01-21 06:16] VITALS: BP 155/85
[2021-01-21] MEDS: InsuLIN REG 1unit/0.01ml Soln (100units/ml) SC SCH ×4 (06:16→21:45)
[2021-01-21] MEDS: Nepro With Carbsteady Vanilla 8oz Carton PO SCH ×3 (08:00→18:00)
[2021-01-21] MEDS: MEGESTROL ACET 400MG/10ML ORAL SUSP PO SCH ×2 (08:52→21:35)
[2021-01-21] MEDS: MORPHINE SULFATE INJECTION 2 MG/ML SYRG IV PRN ×4 (08:52→22:45)
[2021-01-21] MEDS: PANTOPRAZOLE 40 MG/10 ML VIAL INJ IV SCH (08:52)
[2021-01-21] MEDS: ASPirin 81 mg TAB PO SCH (08:52)
[2021-01-21] MEDS: HEPARIN SODIUM (PORCINE) 5000 UNITS/ML 1ML VIAL SC SCH ×2 (08:53→21:36)
[2021-01-21 09:00] VITALS: BP 146/80
[2021-01-21] MEDS: CINACALCET HYDROCHLORIDE 30 MG TAB PO SCH (12:25)
[2021-01-21 13:00] VITALS: BP 142/75
[2021-01-21 17:00] VITALS: BP 154/77
[2021-01-21] MEDS: ATORVASTATIN 20 MG TAB PO SCH (21:34)
[2021-01-21 23:32] VITALS: BP 125/68
[2021-01-22] MEDS: MORPHINE SULFATE INJECTION 2 MG/ML SYRG IV PRN ×4 (02:43→18:06)
[2021-01-22 05:05] VITALS: BP 160/61
[2021-01-22] MEDS: ALPRAZolam 0.5 MG TAB PO PRN ×2 (05:57→17:02)
[2021-01-22] MEDS: ACCU-CHEK COMFORT CURVE STRIP VI SCH ×3 (05:58→18:06)
[2021-01-22] MEDS: SUCRALFATE 1 GM/10 ML ORAL SUSP PO SCH ×2 (05:58→18:06)
[2021-01-22] MEDS: VANCOMYCIN HCL 125MG/5ML ORAL SOL PO SCH ×3 (05:58→18:06)
[2021-01-22] MEDS: LANTHANUM CARBONATE 750 MG PO SCH ×2 (06:00→14:00)
[2021-01-22] MEDS: InsuLIN REG 1unit/0.01ml Soln (100units/ml) SC SCH ×3 (06:07→18:42)
[2021-01-22 06:30] LABS: Eosinophils # (auto) 0.3 10 ^3/uL (0-0.8); Hematocrit 33.9 % (41.0-53.0); Hemoglobin 10.9 g/dL (13.5-17.5)
[2021-01-22 06:36] LABS: Basophils # (auto) 0.2 10 ^3/uL (0-0.2); Basophils % (auto) 2.3 % (0.0-2.0); Eosinophils % (auto) 3.6 % (0.0-7.0); Lymphocytes # (auto) 2.3 10 ^3/uL (0.4-5.4); Lymphocytes % (auto) 27.7 % (10.0-50.0); Mean Corpuscular Hemoglobin 33.3 pg (28.0-32.0); Mean Corpuscular Hgb Conc. 32.1 g/dL (32.0-36.0); Mean Corpuscular Volume 103.6 fL (80.0-100.0); Monocytes # (auto) 1.2 10 ^3/uL (0-1.3); Monocytes % (auto) 14.9 % (0.0-12.0); Neutrophils # (auto) 4.2 10 ^3/uL (1.6-8.6); Neutrophils % (auto) 51.5 % (37.0-80.0); Nucleated Red Blood Cells % 0.7 %; Red Blood Cells 3.27 10^6/uL (4.5-5.90); White Blood Cell 8.2 10^3/uL (4.4-10.8)
[2021-01-22 06:53] LABS: Red Cell Distribution Width 22.6 % (11.8-14.3)
[2021-01-22] MEDS ORDERED: SODIUM CHL 0.9% 1000 ML BAG XX ONE (07:00)
[2021-01-22] MEDS: Nepro With Carbsteady Vanilla 8oz Carton PO SCH ×3 (08:00→18:06)
[2021-01-22 09:00] VITALS: BP 164/93
[2021-01-22] MEDS: MEGESTROL ACET 400MG/10ML ORAL SUSP PO SCH (09:29)
[2021-01-22] MEDS: ASPirin 81 mg TAB PO SCH (09:29)
[2021-01-22] MEDS: HEPARIN SODIUM (PORCINE) 5000 UNITS/ML 1ML VIAL SC SCH (09:29)
[2021-01-22] MEDS: PANTOPRAZOLE 40 MG/10 ML VIAL INJ IV SCH (09:29)
[2021-01-22] MEDS: CINACALCET HYDROCHLORIDE 30 MG TAB PO SCH (09:34)
[2021-01-22] MEDS ORDERED: B-COMPLEX W/ C & FOLIC ACID(NEPHROVITE TAB) PO SCH (10:00)
[2021-01-22 12:03] LABS: Albumin 2.2 g/dL (3.4-5.0); Calcium 9.3 mg/dL (8.5-10.1); Potassium 4.9 mmol/L (3.5-5.1)
[2021-01-22 12:06] LABS: BUN/Creatinine Ratio 8.1; Bilirubin, Total 0.5 mg/dL (0.2-1.0); Total Protein 6.8 g/dL (6.4-8.2)
[2021-01-22 13:00] VITALS: BP 134/68
[2021-01-22 17:00] VITALS: BP 128/76
[2021-01-22] MEDS ORDERED: EPOETIN ALFA-EPBX 4,000 UNIT/ML VIAL SC ONE (21:00)
== END 2021-01-22 19:07 | DRG 207 ==
LOC: EDBD 23:29 → ER 23:29 → TELE 01-05 05:52 → ICU WEST 01-06 17:54 → TELE-WESTW 01-13 10:45
PROVIDERS: ADMIT Internal Medicine; ATTEND Internal Medicine
PROC: 5A1955Z Respiratory Ventilation, Greater than 96 Consecutive Hours (ICD-10-PCS; principal; 2021-01-06)
PROC: 0BH17EZ Insertion of Endotracheal Airway into Trachea, Via Natural or Artificial Opening (ICD-10-PCS; 2021-01-06)
PROC: 06HM33Z Insertion of Infusion Device into Right Femoral Vein, Percutaneous Approach (ICD-10-PCS; 2021-01-06)
PROC: B54BZZA Ultrasonography of Right Lower Extremity Veins, Guidance (ICD-10-PCS; 2021-01-06)
PROC: 5A1D70Z Performance of Urinary Filtration, Intermittent, Less than 6 Hours Per Day (ICD-10-PCS; 2021-01-07)
PROC: 5A1D70Z Performance of Urinary Filtration, Intermittent, Less than 6 Hours Per Day (ICD-10-PCS; 2021-01-09)
PROC: 05HA33Z Insertion of Infusion Device into Left Brachial Vein, Percutaneous Approach (ICD-10-PCS; 2021-01-11)
PROC: B54NZZA Ultrasonography of Left Upper Extremity Veins, Guidance (ICD-10-PCS; 2021-01-11)
PROC: 5A1D70Z Performance of Urinary Filtration, Intermittent, Less than 6 Hours Per Day (ICD-10-PCS; 2021-01-11)
PROC: 30233N1 Transfusion of Nonautologous Red Blood Cells into Peripheral Vein, Percutaneous Approach (ICD-10-PCS; 2021-01-11)
PROC: 5A1D70Z Performance of Urinary Filtration, Intermittent, Less than 6 Hours Per Day (ICD-10-PCS; 2021-01-13)
PROC: 5A1D70Z Performance of Urinary Filtration, Intermittent, Less than 6 Hours Per Day (ICD-10-PCS; 2021-01-15)
PROC: 5A1D70Z Performance of Urinary Filtration, Intermittent, Less than 6 Hours Per Day (ICD-10-PCS; 2021-01-18)
PROC: 5A1D70Z Performance of Urinary Filtration, Intermittent, Less than 6 Hours Per Day (ICD-10-PCS; 2021-01-20)
PROC: 5A1D70Z Performance of Urinary Filtration, Intermittent, Less than 6 Hours Per Day (ICD-10-PCS; 2021-01-22)
DX: J96.01 Acute respiratory failure with hypoxia (principal); J18.9 Pneumonia, unspecified organism; G93.41 Metabolic encephalopathy; N18.6 End stage renal disease; I21.4 Non-ST elevation (NSTEMI) myocardial infarction; J98.11 Atelectasis; N17.9 Acute kidney failure, unspecified; A04.72 Enterocolitis due to Clostridium difficile, not specified as recurrent; I13.2 Hypertensive heart and chronic kidney disease with heart failure and with stage 5 chronic kidney disease, or end stage renal disease; E11.42 Type 2 diabetes mellitus with diabetic polyneuropathy; E21.2 Other hyperparathyroidism; E87.5 Hyperkalemia; E11.22 Type 2 diabetes mellitus with diabetic chronic kidney disease; E11.51 Type 2 diabetes mellitus with diabetic peripheral angiopathy without gangrene; F17.210 Nicotine dependence, cigarettes, uncomplicated; I50.9 Heart failure, unspecified; D63.8 Anemia in other chronic diseases classified elsewhere; I95.9 Hypotension, unspecified; Z20.822 Contact with and (suspected) exposure to COVID-19; R56.9 Unspecified convulsions; F41.9 Anxiety disorder, unspecified; I65.29 Occlusion and stenosis of unspecified carotid artery; Z79.82 Long term (current) use of aspirin; Z79.899 Other long term (current) drug therapy; Z99.2 Dependence on renal dialysis; Z79.4 Long term (current) use of insulin; Z89.511 Acquired absence of right leg below knee; Z83.3 Family history of diabetes mellitus; Z88.0 Allergy status to penicillin
CPT/HCPCS: 36415; 36600; 70450; 70496; 71045; 71260; 74176; 74177; 80053; 80061; 80074; 80202; 80307; 82040; 82140; 82607; 82746; 82805; 82962; 83605; 83735; 84100; 84132; 84443; 84478; 84484; 85007; 85014; 85018; 85025; 85027; 85610; 85730; 86850; 86900; 86901; 86920; 87040; 87070; 87077; 87081; 87186; 87205; 87426; 87493; 90935; 93005; 93306; 94002; 94003; 94640; 95819; 96365; 96368; 96375; 97110; 97163; 97530; 99291; A4565; C9113; G0378; J0696; J1815; J2405; J2543; J2704; J3480; J7060; J7131; P9047